=== PATIENT | female | born 1940 | race Caucasian/White ===

== ENCOUNTER 2018-11-23 10:16 | Inpatient (IN) ==
[2018-11-23 10:49] LABS: Bilirubin,Urine Negative (Negative); Blood,Urine Small (Negative); Clarity,Urine Clear (Clear); Color,Urine Yellow (Yellow); Glucose,Urine (UA) Normal (Normal); Ketones,Urine Negative (Negative); Leukocyte Esterase,Urine Negative (Negative); Nitrite,Urine Negative (Negative); PH,Urine 5.5 pH Units (5.0-8.0); Protein,Urine 30 mg/dL (Neg-Trace); Urobilinogen,Urine Normal (Normal)
[2018-11-23 10:51] LABS: Bacteria,Urine None Seen per hpf (None-Few); Hyaline Casts,Urine None Seen per lpf (None-Few); RBC,Urine 0-3 per hpf (0-3); Squamous Epithelial Cell,Urine Many per lpf (None-Few); WBC,Urine 0-3 per hpf (0-3)
--- NOTE | 2018-11-23 11:06 | Emergency Department Note ---
Disposition Clinical Impression: Altered mental status, Leukocytosis, Delirium due to general medical condition Disposition: Admitted As Inpatient Condition: Fair Referrals: Geovany Parson MD [Primary Care Provider] - General Adult HPI - General Chief complaint: ED Altered Mental Status Stated complaint: AMS Time Seen by Provider: 11/23/18 10:20 Source: EMS Limitations: altered mental status - History of Present Illness Pain Scale: 0 - Related Data Home Medications Medication Instructions Recorded Confirmed Nitroglycerin [Nitrostat] 0.4 mg SL Q5-6MIN PRN 12/08/15 11/23/18 Previous Rx's Medication Instructions Recorded LevETIRAcetam [Keppra] 500 mg PO BID #60 tablet 10/09/17 Allergies Allergy/AdvReac Type Severity Reaction Status Date / Time No Known Allergies Allergy Verified 10/07/17 11:36 Past Medical History - Past Medical History Medical history: Reports: arthritis, cardiomyopathy, CHF, COPD, coronary artery disease, GERD, hyperlipidemia, hypertension, myocardial infarction, renal disease, seizures, other Surgical history: Reports: angioplasty/stent, other Psychiatric history: Reports: anxiety RETAIL AIDE history: Reports: no RETAIL AIDE history - Social History Smoking Status: Never smoker Smokeless Tobacco Status: No Alcohol use: Reports: none Drug use: Reports: none Physical Exam - General Limitations: altered mental status General appearance: alert Course Vital Signs Temperature 97.2 F L 11/23/18 10:19 Pulse Rate 103 11/23/18 10:19 Respiratory Rate 20 11/23/18 10:19 Blood Pressure 183/107 11/23/18 10:19 O2 Sat by Pulse Oximetry 96 11/23/18 10:19 Temperature 97.2 F L 11/23/18 10:19 Pulse Rate 106 11/23/18 13:12 Respiratory Rate 25 11/23/18 14:40 Blood Pressure 156/111 11/23/18 13:12 O2 Sat by Pulse Oximetry 100 11/23/18 14:40 Oxygen Delivery Oxygen Delivery Room Air Medical Decision Making - Lab Data Result diagrams: 11/23/18 10:43 11/23/18 10:43 Lab Results 11/23/18 11/23/18 11/23/18 Range/Units 10:40 10:43 10:43 WBC 11.9 H (4.3-11.1) K/mcL RBC 3.66 L (3.82-4.97) M/mcL Hgb 10.7 L (11.5-15.4) g/dL Hct 33.3 L (35.3-44.9) % MCV 91.0 (83.0-100.0) fL MCH 29.2 (28.0-33.3) pg MCHC 32.1 (31.6-35.5) g/dL RDW 15.1 H (11.5-14.5) % Plt Count 170 (140-400) K/mcL MPV 10.0 (9.4-12.4) fL Immature Gran % 0.6 (0-4) % Seg Neutrophils % 89.8 % Lymphocytes % 5.2 % Monocytes % 4.0 % Eosinophils % 0.1 % Basophils % 0.3 % Neutrophils # 10.7 H (1.6-8.9) K/mcL Lymphocytes # 0.6 (0.6-4.6) K/mcL Monocytes # 0.5 (0.0-1.3) K/mcL Eosinophils # 0.0 (0.0-0.6) K/mcL Basophils # 0.0 (0.0-0.2) K/mcL PT 11.8 (9.4-12.1) Seconds INR 1.0 APTT 32.2 (26.0-36.0) Seconds ABG pH (7.32-7.45) pH Units ABG pCO2 (35-45) mmHg ABG pO2 (85-104) mmHg ABG HCO3 (21-27) mEq/L ABG Total CO2 (20-26) mEq/L ABG O2 Saturation (95-98) % ABG Base Excess (-2 to 3) mEq/L O2 Delivery Device Inspired O2 (1-15=lpm [id number]=%) Sodium (136-145) mEq/L Potassium (3.5-5.1) mEq/L Chloride (98-107) mEq/L Carbon Dioxide (23-29) mEq/L BUN (8-23) mg/dL Creatinine (0.60-1.20) mg/dL Est GFR ( Amer) (> 60) Est GFR (Non-Af Amer) (> 60) BUN/Creatinine Ratio (6-26) Glucose (70-105) mg/dL Calculated Osmolality (280-300) Lactic Acid (0.5-2.2) mmol/L Calcium (8.6-10.3) mg/dL Total Bilirubin (0.3-1.0) mg/dL Direct Bilirubin (0.0-0.2) mg/dL Indirect Bilirubin (0.0-1.2) mg/dL AST (13-39) Units/L ALT (7-52) Units/L Alkaline Phosphatase (34-104) Units/L Ammonia (16-53) mcmol/L Creatine Kinase (30-223) Units/L Troponin I (< 0.04) ng/mL Serum Total Protein (6.4-8.9) g/dL Albumin (3.5-5.7) g/dL Globulin (2.4-3.5) g/dL Albumin/Globulin Ratio (1.1-2.2) Lipase (11-82) Units/L Urine Color Yellow (Yellow) Urine Clarity Clear (Clear) Urine pH 5.5 (5.0-8.0) pH Units Ur Specific [place] 1.020 (1.010-1.025) Urine Protein 30 H (Neg-Trace) mg/dL Urine Glucose (UA) Normal (Normal) mg/dL Urine Ketones Negative (Negative) mg/dL Urine Blood Small H (Negative) Urine Nitrite Negative (Negative) Urine Bilirubin Negative (Negative) Urine Urobilinogen Normal (Normal) mg/dL Ur Leukocyte Esterase Negative (Negative) Urine Microscopic RBC 0-3 (0-3) per hpf Urine Microscopic WBC 0-3 (0-3) per hpf Ur Squamous Epith Cells Many H (None-Few) per lpf Urine Bacteria None Seen (None-Few) per hpf Hyaline Casts None Seen (None-Few) per lpf Ur Culture Indicated? NO (NO) 11/23/18 11/23/18 11/23/18 Range/Units 10:43 10:43 10:43 WBC (4.3-11.1) K/mcL RBC (3.82-4.97) M/mcL Hgb (11.5-15.4) g/dL Hct (35.3-44.9) % MCV (83.0-100.0) fL MCH (28.0-33.3) pg MCHC (31.6-35.5) g/dL RDW (11.5-14.5) % Plt Count (140-400) K/mcL MPV (9.4-12.4) fL Immature Gran % (0-4) % Seg Neutrophils % % Lymphocytes % % Monocytes % % Eosinophils % % Basophils % % Neutrophils # (1.6-8.9) K/mcL Lymphocytes # (0.6-4.6) K/mcL Monocytes # (0.0-1.3) K/mcL Eosinophils # (0.0-0.6) K/mcL Basophils # (0.0-0.2) K/mcL PT (9.4-12.1) Seconds INR APTT (26.0-36.0) Seconds ABG pH (7.32-7.45) pH Units ABG pCO2 (35-45) mmHg ABG pO2 (85-104) mmHg ABG HCO3 (21-27) mEq/L ABG Total CO2 (20-26) mEq/L ABG O2 Saturation (95-98) % ABG Base Excess (-2 to 3) mEq/L O2 Delivery Device Inspired O2 (1-15=lpm [id number]=%) Sodium 136 (136-145) mEq/L Potassium 3.8 (3.5-5.1) mEq/L Chloride 102 (98-107) mEq/L Carbon Dioxide 21 L (23-29) mEq/L BUN 22 (8-23) mg/dL Creatinine 1.20 (0.60-1.20) mg/dL Est GFR ( Amer) 52 L (> 60) Est GFR (Non-Af Amer) 43 L (> 60) BUN/Creatinine Ratio 18 (6-26) Glucose 169 H (70-105) mg/dL Calculated Osmolality 289 (280-300) Lactic Acid 3.3 H (0.5-2.2) mmol/L Calcium 9.0 (8.6-10.3) mg/dL Total Bilirubin 0.6 (0.3-1.0) mg/dL Direct Bilirubin 0.1 (0.0-0.2) mg/dL Indirect Bilirubin 0.5 (0.0-1.2) mg/dL AST 18 (13-39) Units/L ALT 12 (7-52) Units/L Alkaline Phosphatase 49 (34-104) Units/L Ammonia 38 (16-53) mcmol/L Creatine Kinase 333 H (30-223) Units/L Troponin I < 0.03 (< 0.04) ng/mL Serum Total Protein 7.6 (6.4-8.9) g/dL Albumin 4.7 (3.5-5.7) g/dL Globulin 2.9 (2.4-3.5) g/dL Albumin/Globulin Ratio 1.6 (1.1-2.2) Lipase 14 (11-82) Units/L Urine Color (Yellow) Urine Clarity (Clear) Urine pH (5.0-8.0) pH Units Ur Specific [place] (1.010-1.025) Urine Protein (Neg-Trace) mg/dL Urine Glucose (UA) (Normal) mg/dL Urine Ketones (Negative) mg/dL Urine Blood (Negative) Urine Nitrite (Negative) Urine Bilirubin (Negative) Urine Urobilinogen (Normal) mg/dL Ur Leukocyte Esterase (Negative) Urine Microscopic RBC (0-3) per hpf Urine Microscopic WBC (0-3) per hpf Ur Squamous Epith Cells (None-Few) per lpf Urine Bacteria (None-Few) per hpf Hyaline Casts (None-Few) per lpf Ur Culture Indicated? (NO) 11/23/18 Range/Units 14:38 WBC (4.3-11.1) K/mcL RBC (3.82-4.97) M/mcL Hgb (11.5-15.4) g/dL Hct (35.3-44.9) % MCV (83.0-100.0) fL MCH (28.0-33.3) pg MCHC (31.6-35.5) g/dL RDW (11.5-14.5) % Plt Count (140-400) K/mcL MPV (9.4-12.4) fL Immature Gran % (0-4) % Seg Neutrophils % % Lymphocytes % % Monocytes % % Eosinophils % % Basophils % % Neutrophils # (1.6-8.9) K/mcL Lymphocytes # (0.6-4.6) K/mcL Monocytes # (0.0-1.3) K/mcL Eosinophils # (0.0-0.6) K/mcL Basophils # (0.0-0.2) K/mcL PT (9.4-12.1) Seconds INR APTT (26.0-36.0) Seconds ABG pH 7.38 (7.32-7.45) pH Units ABG pCO2 27 L (35-45) mmHg ABG pO2 147 H (85-104) mmHg ABG HCO3 16 L (21-27) mEq/L ABG Total CO2 17 L (20-26) mEq/L ABG O2 Saturation 99 H (95-98) % ABG Base Excess -8 L (-2 to 3) mEq/L O2 Delivery Device NRB Inspired O2 100.0 (1-15=lpm [id number]=%) Sodium (136-145) mEq/L Potassium (3.5-5.1) mEq/L Chloride (98-107) mEq/L Carbon Dioxide (23-29) mEq/L BUN (8-23) mg/dL Creatinine (0.60-1.20) mg/dL Est GFR ( Amer) (> 60) Est GFR (Non-Af Amer) (> 60) BUN/Creatinine Ratio (6-26) Glucose (70-105) mg/dL Calculated Osmolality (280-300) Lactic Acid (0.5-2.2) mmol/L Calcium (8.6-10.3) mg/dL Total Bilirubin (0.3-1.0) mg/dL Direct Bilirubin (0.0-0.2) mg/dL Indirect Bilirubin (0.0-1.2) mg/dL AST (13-39) Units/L ALT (7-52) Units/L Alkaline Phosphatase (34-104) Units/L Ammonia (16-53) mcmol/L Creatine Kinase (30-223) Units/L Troponin I (< 0.04) ng/mL Serum Total Protein (6.4-8.9) g/dL Albumin (3.5-5.7) g/dL Globulin (2.4-3.5) g/dL Albumin/Globulin Ratio (1.1-2.2) Lipase (11-82) Units/L Urine Color (Yellow) Urine Clarity (Clear) Urine pH (5.0-8.0) pH Units Ur Specific [place] (1.010-1.025) Urine Protein (Neg-Trace) mg/dL Urine Glucose (UA) (Normal) mg/dL Urine Ketones (Negative) mg/dL Urine Blood (Negative) Urine Nitrite (Negative) Urine Bilirubin (Negative) Urine Urobilinogen (Normal) mg/dL Ur Leukocyte Esterase (Negative) Urine Microscopic RBC (0-3) per hpf Urine Microscopic WBC (0-3) per hpf Ur Squamous Epith Cells (None-Few) per lpf Urine Bacteria (None-Few) per hpf Hyaline Casts (None-Few) per lpf Ur Culture Indicated? (NO) Critical Care Time Critical Care Time: Yes Total Critical Care Time: 35 Attestation: Critical care performed: Time is exclusive of separately billable procedures. Time includes: direct patient care, patient reassessment, coordination of patient care, interpretation of data (laboratory data, radiology data, and respiratory data), review of patient's medical records, medical consultation and documentation of patient care. Procedures included in critical care time: Procedures excluded from critical care time: Attestation Statement - Attestation Attestation: I examined this patient and my medical decision-making was reviewed with the Resident Physician. I agree with the documented findings, disposition and treatment plan as described except to the extent set forth below. Patient to ED via EMS. They provide the history. They state patient was normal last night. Today she is nonverbal and has fecal incontinence. On exam she is laying on her side. Opens eyes to verbal stimulus. Does not verbalize anything. Noted to have stool on her legs and hands. Abdomen is soft with a large hernia. Lungs clear. Plan. Altered mental status workup CT abdomen pelvis. Awaiting family arrival. Family present at bedside. They state when they checked on her today she was staring at the wall and her left side of her back was twitching. She has become more delirious here. Trying to get out of bed. CT scan did not show any c hange in the mass in her brain. Unclear the cause of her delirium. She does have a small area of possible pneumonitis on her CT of her chest. We will cover her with antibiotics as her white count is 11.6. Patient is admitted to medicine. Patient continues to be increasingly delirious. We will give her some Versed and Haldol. Patient was placed in soft restraints until we were able to chemic ally restrain her. Patient resting more comfortably following meds. She has been evaluated by the neurology team and the ED. We added to Keppra level per their Request. We are able to remove the restraints. Chest X-Ray 05/16/19 10:20 IMPRESSION: Focal soft tissue masslike density seen medially within the right upper lobe along the mediastinum involving the paratracheal region, concerning for possible underlying mass. Recommend further evaluation with a CT scan of the chest with contrast to exclude an underlying neoplasm. This is a new finding compared to December 2017. Platelike atelectasis in the left suprahilar region, as well as patchy bibasilar airspace disease which could represent atelectasis or possibly developing pneumonia. Degenerative changes seen in the shoulders and spine. D/ / Yonatan Boss MD / Yonatan Boss MD Interpreting Provider: Yonatan Boss MD Head CT 11/23/18 10:20 IMPRESSION: 1. No acute intracranial abnormality. 2. Left frontal calcified meningioma with demyelination in the left frontal lobe. These findings have been stable dating back to a CT scan from 03/02/2011. D/ / Iban Chatman MD / Iban Chatman MD Interpreting Provider: Iban Chatman MD Abdomen/Pelvis CT 11/23/18 10:21 IMPRESSION: 1. No acute process demonstrated 2. Nonobstructing right nephrolithiasis 3. Probable cholelithiasis 4. Colonic diverticulosis 5. 8 cm left ovarian cystic lesion. Recommend further evaluation with pelvic MRI 6. Calcified uterine leiomyomas D/ / Milton Collins MD / Milton Collins MD Interpreting Provider: Milton Collins MD Chest CT 11/23/18 12:29 IMPRESSION: 1. No evidence of mass in the upper right chest. Prior radiographic findings correspond to a confluence of normal vessels. 2. Small left pleural effusion and bandlike opacity in the left upper lobe. Pattern may represent atelectasis or developing pneumonitis. 3. Scattered ground-glass opacities in the right lung. Pulmonary edema or an underlying viral process may be considered. D/ / Andrew Viveros MD / Andrew Viveros MD Interpreting Provider: nAdrew Viveros MD
[2018-11-23] MEDS ORDERED: 0.9 % Sodium Chloride 1,000 ML IVC ONE ×2 (11:16→15:03)
[2018-11-23 11:22] LABS: Alanine Aminotransferase 12 Units/L (7-52); Albumin 4.7 g/dL (3.5-5.7); Albumin/Globulin Ratio 1.6 (1.1-2.2); Alkaline Phosphatase 49 Units/L (34-104); Aspartate Amino Transferase 18 Units/L (13-39); BUN/Creatinine Ratio 18 (6-26); Bilirubin,Direct 0.1 mg/dL (0.0-0.2); Bilirubin,Indirect 0.5 mg/dL (0.0-1.2); Bilirubin,Total 0.6 mg/dL (0.3-1.0); Blood Urea Nitrogen 22 mg/dL (8-23); Carbon Dioxide 21 mEq/L (23-29); Chloride 102 mEq/L (98-107); Creatine Kinase 333 Units/L (30-223); Globulin 2.9 g/dL (2.4-3.5); Glucose 169 mg/dL (70-105); Lipase 14 Units/L (11-82); Osmolality,Calculated 289 (280-300); Potassium 3.8 mEq/L (3.5-5.1); Sodium 136 mEq/L (136-145); Total Protein 7.6 g/dL (6.4-8.9); Troponin I < 0.03 ng/mL (< 0.04); eGFR For Non-African Americans 43 (> 60)
[2018-11-23 11:23] LABS: Prothrombin Time 11.8 Seconds (9.4-12.1)
[2018-11-23 11:25] LABS: Activated Partial Thrombo Time 32.2 Seconds (26.0-36.0)
[2018-11-23 11:29] LABS: Basophils % 0.3 %; Eosinophils % 0.1 %; Hematocrit 33.3 % (35.3-44.9); Hemoglobin 10.7 g/dL (11.5-15.4); Immature Granulocytes % 0.6 % (0-4); Lymphocytes # 0.6 K/mcL (0.6-4.6); Lymphocytes % 5.2 %; Mean Corpuscular HGB Conc 32.1 g/dL (31.6-35.5); Mean Corpuscular Hemoglobin 29.2 pg (28.0-33.3); Monocytes # 0.5 K/mcL (0.0-1.3); Neutrophils # 10.7 K/mcL (1.6-8.9); Platelet Count 170 K/mcL (140-400); Red Blood Count 3.66 M/mcL (3.82-4.97); Red Cell Distribution Width 15.1 % (11.5-14.5); Segmented Neutrophils % 89.8 %
--- NOTE | 2018-11-23 11:47 | Emergency Department Note ---
Disposition Clinical Impression: Delirium due to general medical condition Altered mental status Qualifiers: Altered mental status type: stupor Qualified Code(s): R40.1 - Stupor Leukocytosis Qualifiers: Leukocytosis type: unspecified Qualified Code(s): D72.829 - Elevated white blood cell count, unspecified Disposition: Admitted As Inpatient Condition: Fair Referrals: Geovnay Parson MD [Primary Care Provider] - General Adult HPI - General Chief complaint: ED Altered Mental Status Stated complaint: AMS Time Seen by Provider: 11/23/18 10:20 Source: EMS Mode of arrival: EMS Limitations: altered mental status Nursing Notes Reviewed: Yes Vital Signs Reviewed: Yes - History of Present Illness HPI Narrative: 78-year-old female with unknown past medical history presenting to the emergency department chief complaint of altered mental status. According to EMS patient was her normal self last evening when she went to bed. She was family. This morning she woke up and was very altered. Was unable to and hemodynamically by herself. And had multiple episodes of fecal incontinence. Patient unable to provide any history of present illness due to her mental status. According to EMS patient was previously diagnosed with a calcified brain tumor. Pain Scale: 0 - Related Data Home Medications Medication Instructions Recorded Confirmed Nitroglycerin [Nitrostat] 0.4 mg SL Q5-6MIN PRN 12/08/15 11/23/18 Previous Rx's Medication Instructions Recorded LevETIRAcetam [Keppra] 500 mg PO BID #60 tablet 10/09/17 Allergies Allergy/AdvReac Type Severity Reaction Status Date / Time No Known Allergies Allergy Verified 10/07/17 11:36 Limitations: ROS unobtainable due to patients medical condition Past Medical History - Past Medical History Attestation: Yes The following information was validated with the patient. Medical history: Reports: arthritis, cardiomyopathy, CHF, COPD, coronary artery disease, GERD, hyperlipidemia, hypertension, myocardial infarction, renal disease, seizures, other Surgical history: Reports: angioplasty/stent, other Psychiatric history: Reports: anxiety CHANGE ROOM ATTENDANT history: Reports: no CHANGE ROOM ATTENDANT history - Social History Smoking Status: Never smoker Smokeless Tobacco Status: No Alcohol use: Reports: none Drug use: Reports: none Physical Exam - General Limitations: altered mental status - Head Head exam: atraumatic, normocephalic, normal inspection - Eye Eye exam: Absent: scleral icterus - ENT ENT exam: mucous membranes moist - Chest Chest inspection: Present: symmetric chest wall rise - Respiratory Respiratory exam: Present: normal lung sounds bilaterally. Absent: respiratory distress, wheezes - Cardiovascular Cardiovascular exam: Present: normal rhythm, tachycardia, normal heart sounds - Abdominal Exam Abdominal exam: Present: soft, other (Midline hernia noted). Absent: rigidity - Extremities Exam Extremities exam: Present: full ROM - Psychiatric Psychiatric exam: Present: agitated - Skin Skin exam: Present: warm Course Course Narrative: 78-year-old female presenting to the emergency department for altered mental status. In the room she is unable to provide any history of present illness. She is covered in feces. Abdomen is soft but has a large midline hernia. Otherwise physical exam mostly benign. She mumbles and moves all 4 extremities. At this time will obtain laboratory analysis along with a CT of the head, abdomen and pelvis. Disposition most likely admission versus transfer pending analysis. - Reevaluation(s) Reevaluation #1: I spoke with the patient's family who has now arrived. They state there unsure how long she has been altered. When the daughter went to visit her she was staring at the wall and was having rigors. They state that she did previously have seizures due to a intracranial mass is currently on Keppra and has not missed any doses. They state that she is saying "it is dark". They are concerned that she has some visual deficits. She has describes some increased b lurry vision in the left eye over the past few weeks. She is also had some intermittent chest pain episodes that she refuses to be seen for. Family members are concerned for possible seizure versus stroke versus cardiac etiology at this time. Patient remains altered but hemodynamically stable at this time. Pending labs and imaging. Reevaluation #2: Patient remains altered but hemodynamically stable at this time. Laboratory analysis shows a mild leukocytosis but otherwise unchanged from baseline. Urinalysis within normal limits. CT of the head, chest, abdomen and pelvis shows possible developing pneumonitis but otherwise no acute findings. We will cover the patient with azithromycin and Rocephin for possible infection. At this time will plan to admit the patient for further workup for her altered mental status. Family at bedside agrees with this plan. I spoke with the hospitalist union organizer Dr. Mcghee who agrees to accept the patient at this time. Vital Signs Temperature 97.2 F L 11/23/18 10:19 Pulse Rate 103 11/23/18 10:19 Respiratory Rate 20 11/23/18 10:19 Blood Pressure 183/107 11/23/18 10:19 O2 Sat by Pulse Oximetry 96 11/23/18 10:19 Temperature 97.2 F L 11/23/18 10:19 Pulse Rate 106 11/23/18 13:12 Respiratory Rate 18 11/23/18 13:12 Blood Pressure 156/111 11/23/18 13:12 O2 Sat by Pulse Oximetry 96 11/23/18 13:12 Oxygen Delivery Oxygen Delivery Room Air Medical Decision Making - Lab Data Result diagrams: 11/23/18 10:43 11/23/18 10:43 Lab Results 11/23/18 11/23/18 11/23/18 Range/Units 10:40 10:43 10:43 WBC 11.9 H (4.3-11.1) K/mcL RBC 3.66 L (3.82-4.97) M/mcL Hgb 10.7 L (11.5-15.4) g/dL Hct 33.3 L (35.3-44.9) % MCV 91.0 (83.0-100.0) fL MCH 29.2 (28.0-33.3) pg MCHC 32.1 (31.6-35.5) g/dL RDW 15.1 H (11.5-14.5) % Plt Count 170 (140-400) K/mcL MPV 10.0 (9.4-12.4) fL Immature Gran % 0.6 (0-4) % Seg Neutrophils % 89.8 % Lymphocytes % 5.2 % Monocytes % 4.0 % Eosinophils % 0.1 % Basophils % 0.3 % Neutrophils # 10.7 H (1.6-8.9) K/mcL Lymphocytes # 0.6 (0.6-4.6) K/mcL Monocytes # 0.5 (0.0-1.3) K/mcL Eosinophils # 0.0 (0.0-0.6) K/mcL Basophils # 0.0 (0.0-0.2) K/mcL PT 11.8 (9.4-12.1) Seconds INR 1.0 APTT 32.2 (26.0-36.0) Seconds Sodium (136-145) mEq/L Potassium (3.5-5.1) mEq/L Chloride (98-107) mEq/L Carbon Dioxide (23-29) mEq/L BUN (8-23) mg/dL Creatinine (0.60-1.20) mg/dL Est GFR ( Amer) (> 60) Est GFR (Non-Af Amer) (> 60) BUN/Creatinine Ratio (6-26) Glucose (70-105) mg/dL Calculated Osmolality (280-300) Lactic Acid (0.5-2.2) mmol/L Calcium (8.6-10.3) mg/dL Total Bilirubin (0.3-1.0) mg/dL Direct Bilirubin (0.0-0.2) mg/dL Indirect Bilirubin (0.0-1.2) mg/dL AST (13-39) Units/L ALT (7-52) Units/L Alkaline Phosphatase (34-104) Units/L Ammonia (16-53) mcmol/L Creatine Kinase (30-223) Units/L Troponin I (< 0.04) ng/mL Serum Total Protein (6.4-8.9) g/dL Albumin (3.5-5.7) g/dL Globulin (2.4-3.5) g/dL Albumin/Globulin Ratio (1.1-2.2) Lipase (11-82) Units/L Urine Color Yellow (Yellow) Urine Clarity Clear (Clear) Urine pH 5.5 (5.0-8.0) pH Units Ur Specific [place] 1.020 (1.010-1.025) Urine Protein 30 H (Neg-Trace) mg/dL Urine Glucose (UA) Normal (Normal) mg/dL Urine Ketones Negative (Negative) mg/dL Urine Blood Small H (Negative) Urine Nitrite Negative (Negative) Urine Bilirubin Negative (Negative) Urine Urobilinogen Normal (Normal) mg/dL Ur Leukocyte Esterase Negative (Negative) Urine Microscopic RBC 0-3 (0-3) per hpf Urine Microscopic WBC 0-3 (0-3) per hpf Ur Squamous Epith Cells Many H (None-Few) per lpf Urine Bacteria None Seen (None-Few) per hpf Hyaline Casts None Seen (None-Few) per lpf Ur Culture Indicated? NO (NO) 05/11/23/18 11/23/18 Range/Units 10:43 10:43 10:43 WBC (4.3-11.1) K/mcL RBC (3.82-4.97) M/mcL Hgb (11.5-15.4) g/dL Hct (35.3-44.9) % MCV (83.0-100.0) fL MCH (28.0-33.3) pg MCHC (31.6-35.5) g/dL RDW (11.5-14.5) % Plt Count (140-400) K/mcL MPV (9.4-12.4) fL Immature Gran % (0-4) % Seg Neutrophils % % Lymphocytes % % Monocytes % % Eosinophils % % Basophils % % Neutrophils # (1.6-8.9) K/mcL Lymphocytes # (0.6-4.6) K/mcL Monocytes # (0.0-1.3) K/mcL Eosinophils # (0.0-0.6) K/mcL Basophils # (0.0-0.2) K/mcL PT (9.4-12.1) Seconds INR APTT (26.0-36.0) Seconds Sodium 136 (136-145) mEq/L Potassium 3.8 (3.5-5.1) mEq/L Chloride 102 (98-107) mEq/L Carbon Dioxide 21 L (23-29) mEq/L BUN 22 (8-23) mg/dL Creatinine 1.20 (0.60-1.20) mg/dL Est GFR ( Amer) 52 L (> 60) Est GFR (Non-Af Amer) 43 L (> 60) BUN/Creatinine Ratio 18 (6-26) Glucose 169 H (70-105) mg/dL Calculated Osmolality 289 (280-300) Lactic Acid 3.3 H (0.5-2.2) mmol/L Calcium 9.0 (8.6-10.3) mg/dL Total Bilirubin 0.6 (0.3-1.0) mg/dL Direct Bilirubin 0.1 (0.0-0.2) mg/dL Indirect Bilirubin 0.5 (0.0-1.2) mg/dL AST 18 (13-39) Units/L ALT 12 (7-52) Units/L Alkaline Phosphatase 49 (34-104) Units/L Ammonia 38 (16-53) mcmol/L Creatine Kinase 333 H (30-223) Units/L Troponin I < 0.03 (< 0.04) ng/mL Serum Total Protein 7.6 (6.4-8.9) g/dL Albumin 4.7 (3.5-5.7) g/dL Globulin 2.9 (2.4-3.5) g/dL Albumin/Globulin Ratio 1.6 (1.1-2.2) Lipase 14 (11-82) Units/L Urine Color (Yellow) Urine Clarity (Clear) Urine pH (5.0-8.0) pH Units Ur Specific [place] (1.010-1.025) Urine Protein (Neg-Trace) mg/dL Urine Glucose (UA) (Normal) mg/dL Urine Ketones (Negative) mg/dL Urine Blood (Negative) Urine Nitrite (Negative) Urine Bilirubin (Negative) Urine Urobilinogen (Normal) mg/dL Ur Leukocyte Esterase (Negative) Urine Microscopic RBC (0-3) per hpf Urine Microscopic WBC (0-3) per hpf Ur Squamous Epith Cells (None-Few) per lpf Urine Bacteria (None-Few) per hpf Hyaline Casts (None-Few) per lpf Ur Culture Indicated? (NO) - EKG Data EKG #1 EKG attestation: Yes I reviewed and interpreted this EKG. EKG results narrative: Significant artifact. 96 beats for minute. QRS 166, QTC 505. No sign of ST segment elevation or ischemia.
[2018-11-23] MEDS ORDERED: *HR* LORazepam 2 MG/ML VIAL IVP ONE ×3 (12:02→13:43)
[2018-11-23] MEDS ORDERED: cefTRIAXone 1,000 MG in Water for inj. (sterile) 20 ML 10 ML IVP ONE ×2 (13:47→14:40)
[2018-11-23] MEDS ORDERED: Azithromycin 500 MG in D5% in Water 250 ML IVPB ONE ×2 (13:47→14:40)
[2018-11-23] MEDS ORDERED: Haloperidol Lactate 5 MG/ML VIAL IVP ONE (13:59)
[2018-11-23] MEDS ORDERED: *HR* Midazolam HCl 2 MG/2 ML VIAL IVP ONE ×2 (13:59→14:03)
[2018-11-23] MEDS ORDERED: *HR* Midazolam HCl 2 MG/2 ML VIAL ONE (14:05)
[2018-11-23] MEDS ORDERED: Ipratropium/Albuterol Neb 3 ML IH ONE (14:19)
[2018-11-23 14:43] LABS: ABG Base Excess -8 mEq/L (-2 to 3); ABG HCO3 16 mEq/L (21-27); ABG Oxygen Saturation 99 % (95-98); ABG PCO2 27 mmHg (35-45); ABG PH 7.38 pH Units (7.32-7.45); ABG PO2 147 mmHg (85-104); ABG TCO2 17 mEq/L (20-26)
--- NOTE | 2018-11-23 14:51 | Neurology - Consult Note ---
Date of Encounter: 11/23/18 Time of Encounter: 14:49 Assessment and Plan (1) Seizure Current Visit: No Status: Chronic Neuro consulted for evaluation of AMS, has history of seizures Patient presents with an altered mental state Last known well was yesterday evening Family reporting staring spells and seizure-like activity with head jerking and jerking of left arm Patient has known left frontal lobe calcified meningioma with vasogenic edema CT imaging obtained in the ED showing stable calcified meningioma Due to the calcified meningioma and vasogenic edema there is likely some cortical instability; patient at risk for breakthrough seizures Also, it is unclear whether or not she is compliant with her AED medication (Keppra) PLAN: Recommend Ativan as needed for seizures seizure precautions Loading dose of Keppra 1000 mg IVPB 1 then increase Keppra dose to 1000MG IV Q12 HOURS EEG- MRI brain- Check Keppra level Check urine tox screen (2) Encephalopathy Current Visit: Yes Status: Acute Etiology unclear; Ddx; metabolic given lactic acidosis, infection with concerns for possible pneumonitis, seizures, toxic, or caused by tumor see above History of Present Illness Chief complaint: AMS HPI: Ms. Rollins is a 78 year old female with a PMH of a known left frontal meningoima and seizures, Also has h/o arthritis, cardiomegaly, CHF, COPD, CAD, HLD, HTN, MN and kidney disease. She presents to [facility] with a chief complaint of altered mental state. Neurology consulted to evaluate encephalopathy and seizure history. Apparently, the patient lives at home with her daughter and grandchildren. Her last known well as yesterday afternoon. She was found this morning in a confused state with her daughter stating "she was staring off into space at the wall ". In addition to this she was having jerking of her left arm and head and was found to have had fecal incontinence. The daughter reports that she att empted to speak to her mother however her mother would not make eye contact or respond. While in the emergency department the patient became very agitated and combative requiring Ativan and Haldol to calm her down. Her daughter notes that she has had a headache off and on over the last couple of days but has not complained about it that much. Otherwise, her daughter states she has not had any ill contacts, has not been complaining of muscle or joint aches, fevers or chills, cough, urinary symptoms. Further, she is denying facial droop, dysphasia or dysarthria, unilateral weakness. She states that her mother has not complained of neck pain or stiffness. Family notes that recently the grady carlson has had visual complaints stating "my vision is dark". But they deny noticing any obvious visual deficits. CBC obtained in the ED revealing a mild leukocytosis with WBC 11.9, chemistry panel shows stable renal disease. Lactic acid is elevated but this is felt to be most likely caused by seizure-like activity. CK is 333. Urinalysis negative for acute infection. Review of medication list does not find neuroleptics or SSRIs. CT of the head displays no acute intracranial abnormality. There is a left frontal lobe calcified meningioma with demyelination the left frontal lobe which is stable dating back to 02/2011 CT. Neurology will continue to follow to evaluate for altered mental state Past Med Surg Social Fam HX - Past Medical History Medical history: arthritis, cardiomyopathy, CHF, COPD, coronary artery disease, GERD, hyperlipidemia, hypertension, myocardial infarction, renal disease, seizures, other Additional medical history: brain tumor Psychiatric history: anxiety - Past Surgical History Surgical History: angioplasty/stent, other - Social History Smoking Status: Never smoker Smokeless Tobacco Status: No Alcohol use: none Drug use: none - Family History Mother Living Status: Still Living Hx Family Cardiac Disorders: Yes Hx Family Respiratory Disorders: No Hx Family Cancer: No Hx Family GI Disorders: No Hx Family Endocrine Disorder: No Hx Family Neuromuscular Disorders: No Hx Family Neurologic Disorders: No Hx Family HEENT Disorders: No Hx Family Autoimmune Disorders: No Father Living Status: Hx Family Cardiac Disorders: Yes Hx Family Respiratory Disorders: No Hx Family Cancer: No Hx Family GI Disorders: No Hx Family Endocrine Disorder: No Hx Family Neuromuscular Disorders: No Hx Family Neurologic Disorders: No Hx Family HEENT Disorders: No Hx Family Autoimmune Disorders: No Medications and Allergies Nitroglycerin [Nitrostat] 0.4 mg SL Q5-6MIN PRN 12/08/15 [History] LevETIRAcetam [Keppra] 500 mg PO BID #60 tablet 10/09/17 [Rx] Allergy/AdvReac Type Severity Reaction Status Date / Time No Known Allergies Allergy Verified 10/07/17 11:36 ROS unobtainable: due to mental status All Systems: The remainder of the systems were reviewed and are negative Physical Examination - Vital Signs Vital Signs: Initial Vital Signs Temp Pulse Resp BP Pulse Ox 97.2 F L 103 20 183/107 96 11/23/18 10:19 11/23/18 10:19 11/23/18 10:19 11/23/18 10:19 11/23/18 10:19 - Exam Exam: Examination: Neurological exam is complicated by patient's altered mental state (AMS) General Examination: *CONSTITUTIONAL: lethargic after receiving Haldol and Ativan. *GENERAL APPEARANCE OF PATIENT elderly obese female *EYES: pupils equal, round, reactive to light and accommodation, conjunctiva clear *CARDIOVASCULAR no peripheral edema, distal temperature normal, dorsalis pedis pulses normal. see vital signs Musculoskeletal: No Kernig's or Brudzinski's sign. No meningeal signs including negative head/neck stiffness or periorbital tenderness *GAIT AND STATION deferred *ASSESSMENT OF MUSCLE STRENGTH IN THE UPPER AND LOWER EXTREMITIES unable to assess d/t mental status. Moves extremities x4 through passive observation *MUSCLE TONE IN THE UPPER AND LOWER EXTREMITIES normal, appropriate bulk and tone. No abnormal movements, fasciculations or atrophy identified. Neurological: *ORIENTATION to person, situation, time and place *ATTENTION AND CONCENTRATION are poor; unable to participate in exam, does not follow commands *CN II optic fundi were normal, no papilledema noted. *CN III,IV, PERRLA, EOM not assessed; does not follow commands *CN XI normal strength in the sternocleidomastoid muscles; moves head and neck through passive observation *REFLEXES: deep tendon reflexes were normal and symmetrical , grade 2/4 diffusely, no pathological reflexes were noted Results - Laboratory Findings CBC and BMP: 11/23/18 10:43 11/23/18 10:43 Abnormal lab findings: Abnormal lab results WBC 11.9 K/mcL (4.3-11.1) H 11/23/18 10:43 RBC 3.66 M/mcL (3.82-4.97) L 11/23/18 10:43 Hgb 10.7 g/dL (11.5-15.4) L 11/23/18 10:43 Hct 33.3 % (35.3-44.9) L 11/23/18 10:43 RDW 15.1 % (11.5-14.5) H 11/23/18 10:43 10.7 K/mcL (1.6-8.9) H 11/23/18 10:43 ABG pCO2 27 mmHg (35-45) L 11/23/18 14:38 ABG pO2 147 mmHg (85-104) H 11/23/18 14:38 ABG HCO3 16 mEq/L (21-27) L 11/23/18 14:38 ABG Total CO2 17 mEq/L (20-26) L 11/23/18 14:38 ABG O2 Saturation 99 % (95-98) H 11/23/18 14:38 ABG Base Excess -8 mEq/L (-2 to 3) L 11/23/18 14:38 Carbon Dioxide 21 mEq/L (23-29) L 11/23/18 10:43 Est GFR ( Amer) 52 (> 60) L 11/23/18 10:43 Est GFR (Non-Af Amer) 43 (> 60) L 11/23/18 10:43 Glucose 169 mg/dL (70-105) H 11/23/18 10:43 Lactic Acid 3.3 mmol/L (0.5-2.2) H 11/23/18 10:43 333 Units/L (30-223) H 11/23/18 10:43 30 mg/dL (Neg-Trace) H 11/23/18 10:40 Small (Negative) H 11/23/18 10:40 Ur Squamous Epith Cells Many per lpf (None-Few) H 11/23/18 10:40 - Diagnostic Findings Additional findings: XR/XR chest 1V portable IMPRESSION: Focal soft tissue masslike density seen medially within the right upper lobe along the mediastinum involving the paratracheal region, concerning for possible underlying mass. Recommend further evaluation with a CT scan of the chest with contrast to exclude an underlying neoplasm. This is a new finding compared to December 2017. Platelike atelectasis in the left suprahilar region, as well as patchy bibasilar airspace disease which could represent atelectasis or possibly developing pneumonia. Degenerative changes seen in the shoulders and spine. CT/CT chest wo con IMPRESSION: 1. No evidence of mass in the upper right chest. Prior radiographic findings correspond to a confluence of normal vessels. 2. Small left pleural effusion and bandlike opacity in the left upper lobe. Pattern may represent atelectasis or developing pneumonitis. 3. Scattered ground-glass opacities in the right lung. Pulmonary edema or an underlying viral process may be considered. CT/CT head/brain wo con IMPRESSION: 1. No acute intracranial abnormality. 2. Left frontal calcified meningioma with demyelination in the left frontal lobe. These findings have been stable dating back to a CT scan from 03/02/2011. Consult Discharge Plan - Plan Referrals: Geovany Parson MD [Primary Care Provider] -
[2018-11-23] MEDS ORDERED: Naloxone 0.4 MG/ML INJ IVP PRN (14:58)
[2018-11-23] MEDS ORDERED: methylPREDNISolone 125 MG/2 ML VIAL IVP ONE (15:04)
--- NOTE | 2018-11-23 15:06 | Internal Med History&Physical ---
<Surya Philippe - Last Filed: 11/23/18 18:46> Date of Encounter: 11/23/18 Time of Encounter: 15:43 Internal Medicine - H&P: HPI Chief complaint: Altered mental status Admitted From: Emergency Dept Plans for Post Hospital Care: Home History of present illness: Ms. Rollins is a 78 year old female with past medical history of seizures, severe three-vessel CAD who presented to emergency department with family for concerns of altered mental status. Patient is notably unresponsive during interview and is unable to participate in history. 2 daughters at bedside to frequently check again on the mother however third sibling who lives with mother is not present. Patient was reportedly noticed to be having shaking movements of bilateral upper extremity and head/neck and to be staring with no intention. Her normal seizure apparently involve myclonic motion and tongue biting. Last known well was yesterday evening. Patient reportedly has been altered since this episode. Family is unsure how long the episode lasted is also unsure about how often she does experience these seizure-like episodes. She was reportedly found with multiple solid bowel movements around her. Family does state that patient is very particular about her medications and does not let anyone help her. She does have a history of noncompliance and family states that she picks which medicines she takes each day and does not like multiple medications due to side effects. Family is unsure if she took medication this morning or not. Family states that she has not been complaining of recent illness including fevers, chills, cough, nausea, vomiting, urinary symptoms or bowel changes. She has been eating and drinking well to their knowledge. Only complaints recently per patient include chest pains and headache which family states she does experience frequently. Per chart review, patient does see [facility] and was most recently seen in April 2018 after a hospital follow-up at [facility]. She was noted to have a calcified meningioma which was thought to be stable and to the calcified nature, not contributing to seizures. She was however admitting at that time to noncompliance on her home Keppra. She also sees [facility] and most recent visit with Dr. Man states that they elected for conservative management as patient was refusing invasive workup despite severe three-vessel disease. She was also noted to be noncompliant on beta eileen, statin, JOSUE inhibitor. Family states that she did have a heart attack approximately 3 years ago at which time she was on aspirin and Plavix for 30 days at which time she was instructed to stop Plavix. Family thinks that she takes a low-dose aspirin daily. In the emergency room, vitals were initially significant for a temperature of 97.2 axillary, heart rate of 103, respiratory rate 20, blood pressure 183/107. Laboratory results were significant for leukocytosis of 11.9, ABG of mild metabolic acidosis with partial respiratory compensation. Chemistry showed bicarbonate of 21, mildly decreased kidney function, lactic acid 3.3, CK of 333, negative troponin. Head CT shows no acute intracranial at [place] but did show a left frontal calcified meningioma which is stable from previous. Abdominal CT showed no acute process, probable cholelithiasis, diverticulosis as well as an 8 cm left ovarian cystic lesion. CT of the chest was also obtained and showed no evidence of mass in the right upper chest that was suspected on x-ray. Also noted was scattered groundglass opacities in the right lung suggestive of pulmonary edema versus underlying viral process. Also noted was a bandlike opacity in the left upper lobe were presenting atelectasis versus pneumonitis. She was initially started on fluids, received azithromycin and ceftriaxone as well as DuoNeb for wheezing on auscultation and concern for COPD. She also was sedated due to agitation receiving a total of 2.5 mg of Ativan, 3 mg Versed, 2 mg of Haldol. Neurology was consulted emergency room and will see the patient. Past medical history: CAD, seizures, meningioma, ?COPD, ?CKD III Past surgical history: Cardiac stent Social history: Family denies smoking, alcohol, drug use Past Med Surg Social Fam HX - Past Medical History Medical history: arthritis, cardiomyopathy, CHF, COPD, coronary artery disease, GERD, hyperlipidemia, hypertension, myocardial infarction, renal disease, seizures, other Additional medical history: brain tumor Psychiatric history: anxiety - Past Surgical History Surgical History: angioplasty/stent, other - Social History Smoking Status: Never smoker Smokeless Tobacco Status: No Alcohol use: none Drug use: none - Family History Mother Living Status: Still Living Hx Family Cardiac Disorders: Yes Hx Family Respiratory Disorders: No Hx Family Cancer: No Hx Family GI Disorders: No Hx Family Endocrine Disorder: No Hx Family Neuromuscular Disorders: No Hx Family Neurologic Disorders: No Hx Family HEENT Disorders: No Hx Family Autoimmune Disorders: No Father Living Status: Hx Family Cardiac Disorders: Yes Hx Family Respiratory Disorders: No Hx Family Cancer: No Hx Family GI Disorders: No Hx Family Endocrine Disorder: No Hx Family Neuromuscular Disorders: No Hx Family Neurologic Disorders: No Hx Family HEENT Disorders: No Hx Family Autoimmune Disorders: No Internal Medicine - H&P: Meds Nitroglycerin [Nitrostat] 0.4 mg SL Q5-6MIN PRN 12/08/15 [History] LevETIRAcetam [Keppra] 500 mg PO BID #60 tablet 10/09/17 [Rx] Allergy/AdvReac Type Severity Reaction Status Date / Time No Known Allergies Allergy Verified 10/07/17 11:36 ROS unobtainable: due to mental status All Systems PM: A 10-system review of systems was performed and is negative for pertinent findings except as documented above in the HPI. - Constitutional Vitals: Temp Pulse Resp BP Pulse Ox 97.2 F L 106 20 144/96 100 11/23/18 10:19 11/23/18 13:12 11/23/18 15:02 11/23/18 15:02 11/23/18 14:40 Exam: Gen.: Vitals noted. No acute distress. Obtunded, not responsive to noxious stimuli. HEENT: PERRL however sluggish, oropharynx clear, Normocephalic, atraumatic, mildly dry mucous membranes Neck: Supple. No adenopathy. Patient pushes neck posteriorly to flexion however does not grimace with flexion. Full range of motion. Negative Brudzinski sign Cardiac: Regular rhythm, mildly tachycardic, no murmur, +S1/S2, No BLE edema Pulmonary: Diffuse wheezing present most prominent in upper lobes, equal chest expansion, unlabored breathing, protecting airway Abdomen: soft, does not grimace with palpation, BS noted, no guarding, no palpab le HSM Skin: warm and dry, no visible lesions. MSK: Unable to assess secondary to mental status Neuro: A&Ox0, does not withdraw to noxious stimuli, pupils sluggish however reactive. Reflexes present. Remainder of exam is limited secondary to cooperation. Psych: Unable to assess secondary to mental status Internal Med - H&P Results - Labs CBC & Chem 7: 11/23/18 10:43 11/23/18 10:43 Labs: Short CBC 11/23/18 Range/Units 10:43 WBC 11.9 H (4.3-11.1) K/mcL Hgb 10.7 L (11.5-15.4) g/dL Hct 33.3 L (35.3-44.9) % Plt Count 170 (140-400) K/mcL Neutrophils # 10.7 H (1.6-8.9) K/mcL BMP 11/23/18 10:43 Sodium 136 Potassium 3.8 Chloride 102 Carbon Dioxide 21 L BUN 22 Creatinine 1.20 Glucose 169 H Calcium 9.0 Cardiac Enzymes 11/23/18 Range/Units 10:43 Troponin I < 0.03 (< 0.04) ng/mL Liver Function 11/23/18 Range/Units 10:43 Total Bilirubin 0.6 (0.3-1.0) mg/dL Direct Bilirubin 0.1 (0.0-0.2) mg/dL AST 18 (13-39) Units/L ALT 12 (7-52) Units/L Alkaline Phosphatase 49 (34-104) Units/L Albumin 4.7 (3.5-5.7) g/dL Urine 11/23/18 Range/Units 10:40 Urine Color Yellow (Yellow) Urine Clarity Clear (Clear) Urine pH 5.5 (5.0-8.0) pH Units Ur Specific [place] 1.020 (1.010-1.025) Urine Protein 30 H (Neg-Trace) mg/dL Urine Glucose (UA) Normal (Normal) mg/dL - ABG Interpretation ABG results: 11/23/18 14:38 ABG pH 7.38 ABG pCO2 27 L ABG pO2 147 H ABG HCO3 16 L ABG Total CO2 17 L ABG O2 Saturation 99 H ABG Base Excess -8 L - Impressions ITS Impressions Chest X-Ray 11/23/18 10:20 IMPRESSION: Focal soft tissue masslike density seen medially within the right upper lobe along the mediastinum involving the paratracheal region, concerning for possible underlying mass. Recommend further evaluation with a CT scan of the chest with contrast to exclude an underlying neoplasm. This is a new finding compared to December 2017. Platelike atelectasis in the left suprahilar region, as well as patchy bibasilar airspace disease which could represent atelectasis or possibly developing pneumonia. Degenerative changes seen in the shoulders and spine. D/ / Yonatan Boss MD / Yonatan Boss MD Interpreting Provider: Yonatan Boss MD Head CT 11/23/18 10:20 IMPRESSION: 1. No acute intracranial abnormality. 2. Left frontal calcified meningioma with demyelination in the left frontal lobe. These findings have been stable dating back to a CT scan from 03/02/2011. D/ / Iban Chatman MD / Iban Chatman MD Interpreting Provider: Iban Chatman MD Abdomen/Pelvis CT 11/23/18 10:21 IMPRESSION: 1. No acute process demonstrated 2. Nonobstructing right nephrolithiasis 3. Probable cholelithiasis 4. Colonic diverticulosis 5. 8 cm left ovarian cystic lesion. Recommend further evaluation with pelvic MRI 6. Calcified uterine leiomyomas D/ / Milton Collins MD / Milton Collins MD Interpreting Provider: Milton Collins MD Chest CT 11/23/18 12:29 IMPRESSION: 1. No evidence of mass in the upper right chest. Prior radiographic findings correspond to a confluence of normal vessels. 2. Small left pleural effusion and bandlike opacity in the left upper lobe. Pattern may represent atelectasis or developing pneumonitis. 3. Scattered ground-glass opacities in the right lung. Pulmonary edema or an underlying viral process may be considered. D/ / Andrew Viveros MD / Andrew Viveros MD Interpreting Provider: Andrew Viveros MD - Assessment and Plan (1) Seizure Current Visit: Yes Status: Acute Assessment and plan: - Suspect seizure etiology with post ictal phase - Patient has had a previous breakthrough seizures due to noncompliance with home medications - Alternative etiologies for her mental status are fast and include infectious etiology, respiratory failure, CVA, cardiac event - Home medications include Keppra 500 mg twice a day - Suspect that patient had loss of bowel control related with seizure and is consistent with myoclonic jerking - At time of interview, patient has received multiple sedatives and is no longer agitated or having seizures. - Neurology is following, appreciate recommendations - Did receive 1 g of Keppra in emergency department - CT of the head showed no acute abnormality but did show left frontal meningioma which is stable from 2010. Per most recent neurology outpatient note, this is likely not related to symptoms given the calcified nature - Suspect that mild leukocytosis, lactic acidosis, elevation of creatinine ki nase are all related to this Plan - After discussion with neurology we will continue Keppra loading dose as well as phenytoin 100 mg 3 times a day with possible de-escalation in future. - EEG to be performed tomorrow - MRI of the head is ordered - Obtain Keppra levels - Seizure precautions, patient is currently in restraints however she will be sedated for respiratory failure as below - Neuro checks (2) Acute respiratory failure Current Visit: Yes Status: Acute Assessment and plan: - Acute respiratory failure secondary to pulmonary edema - Patient does have a history of moderate diastolic congestive heart failure as well as possible COPD per family - Patient did initially require oxygen supplementation however throughout course of admission patient did decompensate and had increased work of breathing - Subsequently did require intubation which was performed in ED prior to moving to hospital floor - X-ray on admission showed atelectasis, questionable pneumonia. - CT of the chest was also obtained which showed small left pleural effusion and bandlike opacity in the left upper lobe which may represent atelectasis versus pneumonitis. Also noted was groundglass opacities in the right lung - Patient does have diffuse wheezing on auscultation - Following decompensation of respiratory status, repeat chest x-ray was obtained and showed mild pulmonary vascular congestion which is worse from previous. She did receive 40 mg of Lasix IV 1. As sedation wore off, patient did have increased work of breathing and her oxygen saturation dropped to the 80s. She was subsequently intubated at bedside by ED staff. Resuscitative fluids were stopped after 1 L bolus. - Most recent echocardiogram in November 2015 shows ejection fraction of 55% with moderate diastolic dysfunction and severely dilated left atrium - We will repeat echocardiogram Plan - We will consult critical care for further evaluation and management of ventilator settings - Start Zosyn for possible aspiration event in the setting of suspected seizure, day #1 - Vent settings and station per critical care team. We did have a discussion [id number] and believes this event may be related to flash pulmonary edema given the timeline. There is some suspicion for ARDS secondary to aspiration, however this is less likely - Post intubation chest x-ray shows increasing pulmonary vascular congestion. - We will continue monitor for future needs of diuresis - We did consider vasodilating medications, however as we are currently ruling out stroke and are allowing for permissive hypertension, we will hold off for now. MRI is pending and after this is completed we will consider further. Qualifiers: Respiratory failure complication: hypoxia Qualified Code(s): J96.01 - Acute respiratory failure with hypoxia (3) Encephalopathy Current Visit: Yes Status: Acute Assessment and plan: As above (4) Systemic inflammatory response syndrome Current Visit: No Status: Acute Assessment and plan: - Patient does meet 2/4 sirs criteria with tachycardia and tachypnea - Lactic acidosis also noted of 3.3 on admission which was trended to 5.5 - At this time, I do suspect that this is more likely related to seizure like activity. There is some suspicion for aspiration pneumonia given suspected seizure-like activity. - Chest x-ray and CT scan showed possible atelectasis versus pneumonia. - CT of the abdomen shows no obvious source of infection. - Suspected respiratory failure is more likely related to fluid - Patient was given one-time dose of Rocephin and azithromycin Plan - Patient did receive 1 L normal saline bolus emergency department. We did not not give additional resuscitative fluids as above due to concerns with worsening respiratory status. - Lactic acid will be trended - Start Zosyn, day #1 - Blood cultures ordered stat (5) Pneumonitis Current Visit: Yes Status: Acute Assessment and plan: As above, possibly secondary to aspiration (6) CAD (coronary artery disease), [place] coronary artery Current Visit: No Status: Chronic Assessment and plan: - Patient is known history of severe three-vessel disease and does follow with [facility] - Patient has been reporting chest pain per family members at home - Troponin negative on admission - EKG personally reviewed showing normal sinus rhythm with ST depression in V5, otherwise unremarkable - Patient previously on aspirin and Plavix, however she was instructed to stop taking Plavix multiple years ago after one bare metal stent. - Per most recent cardiology note, patient was recommended to have further evaluation and management including CABG, however patient has declined - Patient has a high suspicion for noncompliance at home medications, unclear if she is taking her aspirin - No home statin, beta eileen, JOSUE inhibitor on medication list Plan - We will give rectal aspirin now - Trend troponin - Consider repeat EKG in the morning Qualifiers: [place] vs. transplanted heart: [place] heart Associated angina: with unspecified angina Qualified Code(s): I25.119 - Atherosclerotic heart disease of [place] coronary artery with unspecified angina pectoris (7) Metabolic acidosis Current Visit: Yes Status: Acute Assessment and plan: - High anion gap metabolic acidosis with partial respiratory compensation - Anion gap of 13 on presentation with bicarbonate of 21 - Suspected etiology is lactic acidosis which may be secondary to seizure versus infection - PH of 7.38 Plan - Received 1 L of normal saline bolus emergency department however unable to give additional fluids due to respiratory status - We will continue monitor and trend lactic acid - We will defer further management to critical care team at this time (8) Hypertension Current Visit: Yes Status: Chronic Assessment and plan: No home medications Elevated on admission however given that we are ruling out a stroke, we will allow for permissive hypertension Qualifiers: Hypertension type: essential hypertension Qualified Code(s): I10 - Essential (primary) hypertension (9) Obesity (BMI 30.0-34.9) Current Visit: Yes Status: Chronic (10) Lactic acidosis Current Visit: Yes Status: Acute Assessment and plan: As above for metabolic acidosis (11) DVT prophylaxis Current Visit: Yes Status: Acute Assessment and plan: Subcutaneous heparin - Time Spent With Patient Total time spent is greater than 50% in coordination of care (as documented) at patient's floor/unit and/or counseling patient: <Lula Copeland - Last Filed: 11/23/18 20:35> Date of Encounter: 11/23/18 Internal Medicine - H&P: HPI History of present illness: Ms. Rollins is a 78 year old female All Systems PM: A 10-system review of systems was performed and is negative for pertinent findings except as documented above in the HPI. - Constitutional Vitals: Temp Pulse Resp BP Pulse Ox 100.9 F H 117 14 142/87 100 11/23/18 16:25 11/23/18 17:06 11/23/18 17:06 11/23/18 17:06 11/23/18 17:06 Internal Med - H&P Results - Labs CBC & Chem 7: 11/23/18 10:43 11/23/18 10:43 Labs: Short CBC 11/23/18 Range/Units 10:43 WBC 11.9 H (4.3-11.1) K/mcL Hgb 10.7 L (11.5-15.4) g/dL Hct 33.3 L (35.3-44.9) % Plt Count 170 (140-400) K/mcL Neutrophils # 10.7 H (1.6-8.9) K/mcL BMP 11/23/18 10:43 Sodium 136 Potassium 3.8 Chloride 102 Carbon Dioxide 21 L BUN 22 Creatinine 1.20 Glucose 169 H Calcium 9.0 Cardiac Enzymes 11/23/18 Range/Units 10:43 Troponin I < 0.03 (< 0.04) ng/mL Liver Function 11/23/18 Range/Units 10:43 Total Bilirubin 0.6 (0.3-1.0) mg/dL Direct Bilirubin 0.1 (0.0-0.2) mg/dL AST 18 (13-39) Units/L ALT 12 (7-52) Units/L Alkaline Phosphatase 49 (34-104) Units/L Albumin 4.7 (3.5-5.7) g/dL Urine 11/23/18 Range/Units 10:40 Urine Color Yellow (Yellow) Urine Clarity Clear (Clear) Urine pH 5.5 (5.0-8.0) pH Units Ur Specific [place] 1.020 (1.010-1.025) Urine Protein 30 H (Neg-Trace) mg/dL Urine Glucose (UA) Normal (Normal) mg/dL - ABG Interpretation ABG results: 11/23/18 14:38 ABG pH 7.38 ABG pCO2 27 L ABG pO2 147 H ABG HCO3 16 L ABG Total CO2 17 L ABG O2 Saturation 99 H ABG Base Excess -8 L - Impressions ITS Impressions Chest X-Ray 11/23/18 10:20 IMPRESSION: Focal soft tissue masslike density seen medially within the right upper lobe along the mediastinum involving the paratracheal region, concerning for possible underlying mass. Recommend further evaluation with a CT scan of the chest with contrast to exclude an underlying neoplasm. This is a new finding compared to December 2017. Platelike atelectasis in the left suprahilar region, as well as patchy bibasilar airspace disease which could represent atelectasis or possibly developing pneumonia. Degenerative changes seen in the shoulders and spine. D/ / Yonatan Boss MD / Yonatan Boss MD Interpreting Provider: Yonatan Boss MD Head CT 11/23/18 10:20 IMPRESSION: 1. No acute intracranial abnormality. 2. Left frontal calcified meningioma with demyelination in the left frontal lobe. These findings have been stable dating back to a CT scan from 03/02/2011. D/ / Iban Chatman MD / Iban Chatman MD Interpreting Provider: Iban Chatman MD Abdomen/Pelvis CT 11/23/18 10:21 IMPRESSION: 1. No acute process demonstrated 2. Nonobstructing right nephrolithiasis 3. Probable cholelithiasis 4. Colonic diverticulosis 5. 8 cm left ovarian cystic lesion. Recommend further evaluation with pelvic MRI 6. Calcified uterine leiomyomas D/ / Milton Collins MD / Milton Collins MD Interpreting Provider: Milton Collins MD Chest CT 11/23/18 12:29 IMPRESSION: 1. No evidence of mass in the upper right chest. Prior radiographic findings correspond to a confluence of normal vessels. 2. Small left pleural effusion and bandlike opacity in the left upper lobe. Pattern may represent atelectasis or developing pneumonitis. 3. Scattered ground-glass opacities in the right lung. Pulmonary edema or an underlying viral process may be considered. D/ / Andrew Viveros MD / Andrew Viveros MD Interpreting Provider: Andrew Viveros MD Chest X-Ray 11/23/18 15:47 IMPRESSION: Mild pulmonary edema which is increased. D/ / 11/23/2018 16:22:09 Surya Johnson MD / josé miguel Interpreting Provider: Surya Johnson MD - Assessment and Plan (1) CAD (coronary artery disease), [place] coronary artery Current Visit: No Status: Chronic Qualifiers: [place] vs. transplanted heart: [place] heart Associated angina: with unspecified angina Qualified Code(s): I25.119 - Atherosclerotic heart disease of [place] coronary artery with unspecified angina pectoris (2) Hypertension Current Visit: Yes Status: Chronic Qualifiers: Hypertension type: essential hypertension Qualified Code(s): I10 - Essential (primary) hypertension (3) Obesity (BMI 30.0-34.9) Current Visit: Yes Status: Chronic (4) Systemic inflammatory response syndrome Current Visit: No Status: Acute (5) Seizure Current Visit: Yes Status: Acute (6) DVT prophylaxis Current Visit: Yes Status: Acute (7) Encephalopathy Current Visit: Yes Status: Acute (8) Pneumonitis Current Visit: Yes Status: Acute (9) Acute respiratory failure Current Visit: Yes Status: Acute Qualifiers: Respiratory failure complication: hypoxia Qualified Code(s): J96.01 - Acute respiratory failure with hypoxia (10) Metabolic acidosis Current Visit: Yes Status: Acute (11) Lactic acidosis Current Visit: Yes Status: Acute - Time Spent With Patient Total time spent is greater than 50% in coordination of care (as documented) at patient's floor/unit and/or counseling patient: - Attending Attestation I examined this patient and my medical decision-making was reviewed with the Resident Physician Dr Philippe. I agree with the documented findings, disposition and treatment plan as described except to the extent set forth below. Ms Rollins is admitted for encephalopathy with lactic acidosis She was last seen well at home prior to bed 11/22 and awoke altered when found by family this morning. She required aggressive treatment for agitation in ED by team there including multiple doses of ativan, versed, haldol. Family reported in recent weeks her complaining it was dark (concern for vision change), chest pain she refused to be evaluated for (refused severe 3 V disease intervention offered by her land acquisition manager in past and wouldn't permit family to take her into doctor office, and suspected non compliance with home meds, including her keppra (one family member noted she doesn't miss doses but multiple other documentation in chart notes family concern she has missed doses). Dr House outpt notes confirm she has had breathrough seziures due to her stopping med on her own last year. Had been at [facility] for seizure in summer 2017. Daughters at bedside additionally note to me that since being in ED she has developed increased work of breathing and audible wheezing that developed after she was sedated by ED team and received IVFs. pt cannot give information as she is heavily sedated. On chart review known past medical history includes diastolic chf, cad s/p stent, copd, ckd stage uk, calcified brain tumor, hld. ros from family pulm- no recent sick contacts, cough, cold, prior wheezing, sob or home o2 cv- recent cp, unclear if with exertion or at rest, no known palpitations, le edema, + chf history not on meds abd- no rect c/o abd pain, n/v/diarrhea, was dry heaving at home prior to EMS being called and no emesis visualized family history non contributory, reviewed if requires neuro unit with cont EEG monitoring this admission family prefers [facility]. gen- lethargic, appears stated age, mild resp distress eyes- pupils equal round cv- reg rate and rhythm, normal s1,s2, no murmurs appreciated but hard to aus culate given level of wheezing present, radial pulses intact and regular, warm extremities, no le edema lungs- diffuse expiratory wheezing, resp distress with some accessory muscle use, no pooling of secretions, cannot sit to eval posteriorly, 02 sat 94% 2l nc abd- soft, no apparent tenderness, no guarding or grimace, non distended, + bs skin- warm, dry, normal color msk- bl soft wrist restraints in place gu- murray cath with yellow clear urine draining neuro- lethargic, does not open eyes or follow commands, no spontaneous movement, no facial droop, neg babinski, no posturing, limited exam post multi drug sedation Encephalopathy, type unknown at this time differential includes high suspicion seizure given lactate and CK and known non compliance with Keppra, anion gap with lactic acidosis, infectious with possible pneumonitis/?early aspiration finding, related to brain tumor, cannot rule out CVA -neuro on board and has evaluated, MRI and EEG pending -keppra level pending, seizure precautions, prn ativan for seizure, defer to neuro to keppra load -stroke order set in place, rectal asa, would NOT be tpa candidate as outside window, no statin as npo, permissive htn, prn labetalol for sbp >220 Possible pneumonitis/cannot rule out asp pna Wheezing Acute hypoxic resp failure with new O2 NC requirement Suspect flash pulm edema vs aspiration pneumonitis at this time CT scan reviewed ABG reviewed, not acidotic -stat repeat CXR pending as wheezing and resp distress since fluid bolus, CANNOT give further fluids, hx chf and stat 40 mg IV lasix ordered -zosyn empiric for asp pna -prn o2 -steroids and scheduled nebs Anion Gap most likley 2/2 Lactic Acidosis -cannot give further fluids at this time due to resp status as noted above, serial lactates, suspect she is post ictal given wbc elevation, ck elevation and lactate -infectious work up as below She technically meets severe sepsis criteria though infectious etiology is not the most suspected diagnoses as noted above UA neg, ct a/p neg for infectious process, possible early pneumonitis lactate uptrending as above -we cannot give sepsis rate fluids at this time as I fear she would decomp to the point of needing intubation given mentation does not qualify her for bipap if needed -ED did not collect blood cxs, and gave her abx -we have ordered stat bl cxs now -zosyn as above -will trend lactates HTN- significantly high on presentation, now normotensive, permissive htn CK 300s- suspect seizure vs rhabdo (? how long altered at home overnight) with normal creat -i/os, trend ck, unable to give further fluids at this time incidental 8cm ovarian cyst- requires mri outpt stable chronic frontal meningioma Sinus tachycardia (100-110s with agitation) c/o chest pain per family over last couple weeks at home CAD s/p PCI remote past hx on no home meds trop neg in EKG ED got EKG x2 and reviewed, there is great artifact making difficult to interpret both however when reviewing the two together, states afib in one though I can see p waves in lead I clearly in one and R to R intervals are regular in both, possible isolated st [place] in V lead however can't classify if meets for actual depression, no ST elevation noted If ACS occured overnight would suspect to see + trop by now tele, cont to trend trops, check echo further diagnoses and plan as noted by resident UPDATE called by ED as pt remained there further resp distress, dropping sats into 80s% on oxymask, agitated. On eval skin mottling and hypoxic with perioral cyanosis. ED attending to bedside for intubation. Family at bedside and gave consent She will be admitted to ICU and care transferred to critical care team I have discussed case with ICU attending who will be taking over care and neuro is updated
[2018-11-23] MEDS ORDERED: Ipratropium/Albuterol Neb 3 ML IH PRN (15:18)
--- NOTE | 2018-11-23 15:22 | Event Note ---
Date of Encounter: 11/23/18 Time of Encounter: 15:40 to serve as attending attestation pending completionof resident H&P I examined this patient and my medical decision-making was reviewed with the Resident Physician Dr Philippe. I agree with the documented findings, disposition and treatment plan as described except to the extent set forth below. Ms Rollins is admitted for encephalopathy with lactic acidosis She was last seen well at home prior to bed 11/22 and awoke altered when found by family this morning. She required aggressive treatment for agitation in ED by team there including multiple doses of ativan, versed, haldol. Family reported in recent weeks her complaining it was dark (concern for vision change), chest pain she refused to be evaluated for, and suspected non compliance with home meds, including her keppra (one family member noted she doesn't miss doses but multiple other documentation in chart notes family concern she has missed doses). Dr House outpt notes confirm she has had breathrough seziures due to her stopping med on her own last year. Had been at [facility] for seizure in summer 2017. Daughters at bedside additionally note to me that since being in ED she has developed increased work of breathing and audible wheezing. pt cannot give information as she is heavily sedated. On chart review known past medical history includes diastolic chf, cad s/p stent, copd, ckd stage uk, calcified brain tumor, hld. ros from family pulm- no recent sick contacts, cough, cold, prior wheezing, sob or home o2 cv- recent cp, unclear if with exertion or at rest, no known palpitations, le edema, + chf history not on meds abd- no rect c/o abd pain, n/v/diarrhea, was dry heaving at home prior to EMS being called and no emesis visualized family history non contributory, reviewed if requires neuro unit with cont EEG monitoring this admission family prefers [place]. gen- lethargic, appears stated age, mild resp distress eyes- pupils equal round cv- reg rate and rhythm, normal s1,s2, no murmurs appreciated but hard to ausculate given level of wheezing present, radial pulses intact and regular, warm extremities, no le edema lungs- diffuse expiratory wheezing, resp distress with some accessory muscle use, no pooling of secretions, cannot sit to eval posteriorly, 02 sat 94% 2l nc abd- soft, no apparent tenderness, no guarding or grimace, non distended, + bs skin- warm, dry, normal color msk- bl soft wrist restraints in place gu- murray cath with yellow clear urine draining neuro- lethargic, does not open eyes or follow commands, no spontaneous movement, no facial droop, neg babinski, no posturing, limited exam post multi drug sedation Encephalopathy, type unknown at this time differential includes high suspicion seizure given lactate and CK and known non compliance with Keppra, anion gap with lactic acidosis, infectious with possible pneumonitis/?early aspiration finding, related to brain tumor, cannot rule out CVA -neuro on board and has evaluated, MRI and EEG pending -keppra level pending, seizure precautions, prn ativan for seizure, defer to neuro to keppra load -stroke order set in place, rectal asa, would NOT be tpa candidate as outside window, no statin as npo, permissive htn, prn labetalol for sbp >220 Possible pneumonitis/cannot rule out asp pna Wheezing Acute hypoxic resp failure with new O2 NC requirement Suspect flash pulm edema vs aspiration pneumonitis at this time CT scan reviewed ABG reviewed, not acidotic -stat repeat CXR pending as wheezing and resp distress since fluid bolus, CANNOT give further fluids, hx chf and stat 40 mg IV lasix ordered -zosyn empiric for asp pna -prn o2 -steroids and scheduled nebs Anion Gap most likley 2/2 Lactic Acidosis -cannot give further fluids at this time due to resp status as noted above, serial lactates, suspect she is post ictal given wbc elevation, ck elevation and lactate -infectious work up as below She technically meets severe sepsis criteria though infectious etiology is not the most suspected diagnoses as noted above UA neg, ct a/p neg for infectious process, possible early pneumonitis lactate uptrending as above -we cannot give sepsis rate fluids at this time as I fear she would decomp to the point of needing intubation given mentation does not qualify her for bipap if needed -ED did not collect blood cxs, and gave her abx -we have ordered stat bl cxs now -zosyn as above -will trend lactates HTN- high on presentation, now normotensive, permissive htn CK 300s- suspect seizure vs rhabdo (? how long altered at home overnight) with normal creat -i/os, trend ck, unable to give further fluids at this time incidental 8cm ovarian cyst- requires mri outpt stable chronic frontal meningioma Sinus tachycardia Recent c/o chest pain CAD s/p PCI remote past hx trop neg ekg states afib though I can see p waves in I and R to R intervals are norm, there is great artifact making difficult to interpret, though no obvisou st depression or elevation noted tele, trend trop, cehck echo further diagnoses and plan as noted by resident
[2018-11-23] MEDS ORDERED: Furosemide 40 MG/4 ML VIAL IVP ONE (15:57)
[2018-11-23] MEDS ORDERED: Piperacillin/Tazobactam 3.375 GM in 0.9 % Sodium Chloride Mini Bag 100 ML IVPB SCH (16:00)
[2018-11-23] MEDS ORDERED: Furosemide 40 MG/4 ML VIAL ONE (16:10)
[2018-11-23] MEDS ORDERED: *HR* LORazepam 2 MG/ML VIAL IVP PRN (16:20)
[2018-11-23] MEDS ORDERED: *HR* Labetalol 20 MG/4 ML SYRINGE IVP PRN (16:34)
[2018-11-23] MEDS ORDERED: levETIRAcetam 1,000 MG in 0.9 % Sodium Chloride 100 ML IVPB ONE (17:04)
[2018-11-23] MEDS ORDERED: *HR* Rocuronium Bromide 50 MG/5 ML VIAL IVP ONE (17:09)
[2018-11-23] MEDS ORDERED: *HR* FentaNYL (PF) 100 MCG/2 ML VIAL IVP ONE (17:09)
[2018-11-23] MEDS ORDERED: *HR* Etomidate 40 MG/20 ML VIAL IVP ONE (17:09)
[2018-11-23] MEDS ORDERED: *HR* FentaNYL (PF) 100 MCG/2 ML VIAL ONE (17:24)
[2018-11-23] MEDS ORDERED: Phenytoin 1,000 MG in SYRINGE 1 EACH IVPB ONE (17:29)
[2018-11-23] MEDS ORDERED: Artificial Tears SOLN 15 ML BOTTLE BOTH EYES PRN (17:31)
[2018-11-23 17:38] VITALS: BP 158/97
--- NOTE | 2018-11-23 17:40 | Pulmonology Consult Note ---
Date of Encounter: 11/23/18 Time of Encounter: 17:28 Assessment and Plan (1) Uncontrolled seizures Current Visit: Yes Status: Acute -Hx of previous status epilepticus with known hx of noncompliance with home antiepilepticus Qualifiers: Convulsion type: unspecified Qualified Code(s): R56.9 - Unspecified convulsions (2) Acute respiratory failure Current Visit: Yes Status: Acute Qualifiers: Respiratory failure complication: hypoxia Qualified Code(s): J96.01 - Acute respiratory failure with hypoxia (3) Heart failure with preserved ejection fraction Current Visit: Yes Status: Acute (4) Lactic acidosis Current Visit: Yes Status: Acute (5) Hypertension Current Visit: Yes Status: Chronic Qualifiers: Hypertension type: essential hypertension Qualified Code(s): I10 - Essential (primary) hypertension (6) DVT prophylaxis Current Visit: Yes Status: Acute History of Present Illness Consult date: 11/23/18 Requesting physician: Lula Copeland Reason for consult: other (Respiratory Failure ) Chief complaint: AMS History of present illness: 78 year old female with pmh significant for seizures not compliant on antiepileptics, HFpEF, 3 vessel CAD, HTN, HLD, and CKD. Most of hx comes from medical record as she was intubated in the ED. She was brought to the ED by family for AMS. Earlier in the day she was home and found to have shaking movements of bilateral upper extremities, head and neck with episode followed by AMS. Not known how long episode lasted. She is known to be noncomplaint with medicatoins and will pick and choose when she takes her antiepileptics as she does not like some of the side effects. She was previously admitted to [facility] and was found to be in status epilepticus. Within the ED she was given a liter bolus of IVF when became dyspneic, had repeat cxr which showed increased pulmonary edema and started on lasix. Respiratory status continued to decline and was eventually intubated in the ED and will be brought to the ICU. Past Med Surg Social Fam HX - Past Medical History Medical history: arthritis, cardiomyopathy, CHF, COPD, coronary artery disease, GERD, hyperlipidemia, hypertension, myocardial infarction, renal disease, seizures, other Additional medical history: brain tumor Psychiatric history: anxiety - Past Surgical History Surgical History: angioplasty/stent, other - Social History Smoking Status: Never smoker Smokeless Tobacco Status: No Alcohol use: none Drug use: none - Family History Mother Living Status: Still Living Hx Family Cardiac Disorders: Yes Hx Family Respiratory Disorders: No Hx Family Cancer: No Hx Family GI Disorders: No Hx Family Endocrine Disorder: No Hx Family Neuromuscular Disorders: No Hx Family Neurologic Disorders: No Hx Family HEENT Disorders: No Hx Family Autoimmune Disorders: No Father Living Status: Hx Family Cardiac Disorders: Yes Hx Family Respiratory Disorders: No Hx Family Cancer: No Hx Family GI Disorders: No Hx Family Endocrine Disorder: No Hx Family Neuromuscular Disorders: No Hx Family Neurologic Disorders: No Hx Family HEENT Disorders: No Hx Family Autoimmune Disorders: No Medications and Allergies Nitroglycerin [Nitrostat] 0.4 mg SL Q5-6MIN PRN 12/08/15 [History] LevETIRAcetam [Keppra] 500 mg PO BID #60 tablet 10/09/17 [Rx] Allergy/AdvReac Type Severity Reaction Status Date / Time No Known Allergies Allergy Verified 10/07/17 11:36 ROS unobtainable: due to endotracheal tube All Systems: The remainder of the systems were reviewed and are negative Physical Examination Vital Signs: Vital Signs, Last 4 Hours Temp Pulse Resp BP Pulse Ox 11/23/18 17:23 110 16 158/99 95 11/23/18 17:06 117 14 142/87 100 11/23/18 17:00 126 12 132/82 11/23/18 16:57 119 20 126/84 11/23/18 16:54 120 16 155/91 11/23/18 16:25 100.9 F H 115 22 146/84 95 11/23/18 15:48 98.4 F 115 20 170/92 97 11/23/18 15:02 20 144/96 11/23/18 14:40 25 100 General appearance: no acute distress, other (Intubated and sedated ) Eyes: nonicteric ENT: oropharynx dry Effort: other (on vent ) Auscultation: bilateral: wheezes, rhonchi Cardiovascular: regular rate and rhythm Gastrointestinal: normoactive bowel sounds, soft, non-tender, non-distended Integumentary: normal Extremities: no cyanosis, pink and warm, edema other (sedated) other (sedated) Results - Laboratory Findings CBC and BMP: 11/23/18 10:43 11/23/18 10:43 ABG ABG pH 7.38 pH Units (7.32-7.45) 11/23/18 14:38 ABG pCO2 27 mmHg (35-45) L 11/23/18 14:38 ABG pO2 147 mmHg (85-104) H 11/23/18 14:38 ABG O2 Saturation 99 % (95-98) H 11/23/18 14:38 PT/INR, D-dimer PT 11.8 Seconds (9.4-12.1) 11/23/18 10:43 Abnormal lab findings: Abnormal lab results WBC 11.9 K/mcL (4.3-11.1) H 11/23/18 10:43 RBC 3.66 M/mcL (3.82-4.97) L 11/23/18 10:43 Hgb 10.7 g/dL (11.5-15.4) L 11/23/18 10:43 Hct 33.3 % (35.3-44.9) L 11/23/18 10:43 RDW 15.1 % (11.5-14.5) H 11/23/18 10:43 10.7 K/mcL (1.6-8.9) H 11/23/18 10:43 ABG pCO2 27 mmHg (35-45) L 11/23/18 14:38 ABG pO2 147 mmHg (85-104) H 11/23/18 14:38 ABG HCO3 16 mEq/L (21-27) L 11/23/18 14:38 ABG Total CO2 17 mEq/L (20-26) L 11/23/18 14:38 ABG O2 Saturation 99 % (95-98) H 11/23/18 14:38 ABG Base Excess -8 mEq/L (-2 to 3) L 11/23/18 14:38 Carbon Dioxide 21 mEq/L (23-29) L 11/23/18 10:43 Est GFR ( Amer) 52 (> 60) L 11/23/18 10:43 Est GFR (Non-Af Amer) 43 (> 60) L 11/23/18 10:43 Glucose 169 mg/dL (70-105) H 11/23/18 10:43 Lactic Acid 5.5 mmol/L (0.5-2.2) H* 11/23/18 15:09 333 Units/L (30-223) H 11/23/18 10:43 30 mg/dL (Neg-Trace) H 11/23/18 10:40 Small (Negative) H 11/23/18 10:40 Ur Squamous Epith Cells Many per lpf (None-Few) H 11/23/18 10:40 Levetiracetam < 3 mcg/mL (6-46) L 11/23/18 15:09 - Microbiology Findings Microbiology Findings: Microbiology, Last 48 Hours 11/23/18 15:35 Blood Culture - Preliminary Peripheral Venipuncture Culture is incubating and being continuously monitored for growth. Final report to follow. 11/23/18 15:47 Blood Culture - Preliminary Peripheral Venipuncture Culture is incubating and being continuously monitored for growth. Final report to follow. - Clinical Findings Intake & Output: Intake & Output 11/23/18 11/23/18 11/23/18 07:59 15:59 23:59 Intake Total 1260 / 1260 Balance 1260 / 1260 Weight 89.358 kg Consult Discharge Plan - Plan Referrals: Geovany Parson MD [Primary Care Provider] -
[2018-11-23] MEDS ORDERED: *HR* Heparin 5,000 UNIT/ML VIAL SQ SCH (18:00)
--- NOTE | 2018-11-23 18:56 | Event Note ---
Date of Encounter: 11/23/18 Time of Encounter: 18:54
--- NOTE | 2018-11-23 19:00 | Death Note ---
<Paul Foreman - Last Filed: 11/23/18 18:57> Discharge Sum: Summary - Date and Time Date of admission: 11/23/18 14:42 Date of : 11/23/18 Time of : 18:49 - Summary Details: Arrived to ED today after likely seizure activity at home followed by AMS. She was not witnessed in the ED to have any neurological deficits concerning for CVA. She had non acute CT head. Was given 1L IVF bolus in ED and later found to have increased pulmonary edema on CXR and increased dyspnea. 1 dose lasix given in ED. She was intubated in the ED. Neuro evaluated her with discussion of antiepileptics recommended phenytoin loading dose followed by maintenance doses of phenytoin and keppra. Upon arrival to the ICU loading dose of 1000mg phenytoin was given subsequent drop in BP from 170's systolic to 60's systolic followed by loss of pulse and asytole on the monitor. CPR was immediately started per ACS protocol which lasted for 36 min with epinephrine, amioderone, bicarb, magnesium, and tpa given. Rhythm checks went from asystole to PEA to V tach which was defibrillated at 200 joules once with all subsequent rhythm checks being asystole. The way she lost the pulse and the history of chest pain in the ED and anterolateral ischemia in the EKG 13:13 it looks like the etiology of this cardiac arrest Coronary thrombosis vs pulmonary embolism. Despite all resuscitative ROSC was not obtained Family requested the code to be discontinued after 36 min. - Additional Data Confirmation of as documented by pronouncing clinician: no pulse, no respirations, no heart sounds Family: at bedside Attending physician: Sondra Mcghee Was code activated?: Yes Autopsy requested?: No psychological examiner notified?: Yes Discharge Sum: Diag - PCOD Probable Cause of : Pulmonary embolism Discharge Sum: Prov - Provider Primary care physician: Geovany Parson Admitting clinician: Surya Philippe Attending physician on admission: Lula Copeland Consults: 11/23/18 15:14 Consult to Neurology [CONS] Routine Consulting Provider: [facility] Reason for Consult: AMS, history of seizures Call Completed: Yes 11/23/18 17:09 Consult to Critical Care [CONS] Routine Consulting Provider: [facility] Reason for Consult: management of this pt while in icu with encephalopathy, resp failure, suspected seizures Call Completed: Yes Pronouncing clinician: Paul Foreman <Madi Grant - Last Filed: 11/23/18 21:44> Discharge Sum: Summary - Date and Time Date of admission: 11/23/18 17:34 - Summary Details: I saw the patient in the ER with history and physical exam it was assessed that patient presented with status partial seizure during fluid resuscitation patient developed pulmonary edema with acute hypoxic respiratory failure eventually intubated and mechanical ventilated patient BP was around 140/90 before intubation patient was agitated and cyanotic with blood pressure around 180's Neurology was evaluating the patient since patient has looks like status partial seizure it was decided to give Phenytoin loading dose and maintenance and Keppra , patient was transferred to ICU in critical condition . After coming to the ICU vitals were stable , phenytoin 1000 mg piggyback was ordered it was given by the RN after the dose was given patient developed hypotension i was called by RN into the ICU room the first rhythm i saw in the monitor was asystole CPR was started by ICU staff then i took over see above what happened during the cicode most likely the hemodynamically instability precipitated a coronary event since patient has severe triple vessel disease or it is a PE as CT chest which was done was not with PE protocol . Gave tpa during the code patient didnt respond. - Additional Data Attending physician: Madi Grant MD Discharge Sum: Prov - Provider Primary care physician: Geovany Parson Consults: 11/23/18 15:14 Consult to Neurology [CONS] Routine Consulting Provider: [facility] Reason for Consult: AMS, history of seizures Call Completed: Yes 11/23/18 17:09 Consult to Critical Care [CONS] Routine Consulting Provider: [facility] [place] Reason for Consult: management of this pt while in icu with encephalopathy, resp failure, suspected seizures Call Completed: Yes Critical Care Time Critical Care Time: Yes Total Critical Care Time: 60 Attestation: I spent 60 minutes of Critical Care time with this patient. It involved decision making of high complexity to assess, manipulate, and support vital organ system failure and/or to prevent further life threatening deterioration of the patient's condition. The time involved in the performance of separately reportable procedures was not counted toward critical care time.
[2018-11-23] MEDS ORDERED: Artificial Tears SOLN 15 ML BOTTLE BOTH EYES SCH (20:00)
[2018-11-23] MEDS ORDERED: Chlorhexidine Rinse 15 ML MOUTHWASH MM SCH (21:00)
[2018-11-23] MEDS ORDERED: Levalbuterol Neb 0.63 MG/3 ML IH SCH (22:00)
[2018-11-23] MEDS ORDERED: Budesonide/Formoterol 160/4.5 1 PUFF INH IH SCH (22:00)
--- NOTE | 2018-11-23 22:17 | Electrocardiograph Report ---
[facility] Test Date: 2018-11-23 Pat Name: Carlota Rollins Department: [id number] Room: 02 Gender: F Math Teacher: : 1940 Requested By: Radha Faustin Order Number: [id number] Reading MD: Mumtaz Flores Measurements Intervals [place] Rate: 96 P: ME: QRS: -2 QRSD: 166 T: 43 QT: 399 QTc: 505 Interpretive Statements Atrial fibrillation LVH with secondary repolarization abnormality Electronically Signed On 11-23-2018 22:16:07 EDT by Mumtaz Flores
[2018-11-24] MEDS ORDERED: methylPREDNISolone 125 MG/2 ML VIAL IVP SCH
[2018-11-24] MEDS ORDERED: Pantoprazole 40 MG VIAL IVP SCH (09:00)
[2018-11-24] MEDS ORDERED: levETIRAcetam 1,000 MG in 0.9 % Sodium Chloride 100 ML IVPB SCH (09:00)
[2018-11-24] MEDS ORDERED: Furosemide 40 MG/4 ML VIAL IVP SCH (09:00)
[2018-11-24] MEDS ORDERED: Azithromycin 500 MG in D5% in Water 250 ML IVPB SCH (16:00)
--- NOTE | 2018-11-27 09:38 | Electrocardiograph Report ---
[address] [place], [place] [address] Test Date: 2018-11-23 Pat Name: Carlota Rollins Department: [id number] Room: 02 Gender: F Correctional Sergeant: : 1940 Requested By: Julio Bolton Order Number: [id number] Reading MD: John Man Measurements Intervals [place] Rate: 109 P: SD: QRS: -9 QRSD: 100 T: -36 QT: 386 QTc: 520 Interpretive Statements Baseline artifact complicates interpretation Regular rhythm noted ST-T changes, consider inferior and lateral ischemia Recommend repeat ECG Electronically Signed On 11-27-2018 9:37:17 EDT by John Man
== END 2018-11-23 18:49 | disposition expired | DRG 52 ==
LOC: 3ANU 10:16 → EMEROOARM 10:16 → 2NNU 16:17 → ICNU 16:52 → SUATTDRO 17:34 → ICNU 18:28
PROVIDERS: ADMIT Internal Medicine Nephrology; ATTEND Internal Medicine Pulmonary Disease